=== PATIENT | male | born 1935 | race Caucasian/White ===

== ENCOUNTER 2016-05-29 11:01 | Day surgery (SDC) | payer OTHER ==
[~2016-05-29] VITALS: Ht 165.1 cm; Wt 54.7 kg
[~2016-05-29 11:01] MED LIST: AMLO10 PO; CLOP75 PO; GEMF600T OR; LEVO150T42 PO; METO50TA OR; PANTOPRAZOLE
[2016-05-29] MEDS ORDERED: LACTATED RINGER'S 1000 ML IV PRN (11:45)
[2016-05-29] MEDS ORDERED: POVIDONE IODINE 5% (ANTISEPSIS KIT) 4 APPLICATIONS EACH NARE SCH (11:45)
[2016-05-29] MEDS ORDERED: VANCOMYCIN 1000 MG/NS 250 ML IV SCH ×2 (11:45)
[2016-05-29] MEDS ORDERED: NS 1000 ML IV SCH (11:45)
[2016-05-29] MEDS ORDERED: SODIUM CHLORID 0.9% 500 ML IV PRN (11:45)
[2016-05-29] MEDS ORDERED: ceFAZolin 2 GM PREMIX 50 ML IV SCH (11:45)
[2016-05-29] MEDS ORDERED: INSULIN HUMAN REGULAR 1,000 UNITS/10 ML VIAL SQ PRN (11:45)
[2016-05-29] MEDS ORDERED: CHLORHEXIDINE GLUCONATE 2 % 1 PACK (2 CLOTHS) TOPICAL PRN (11:45)
[2016-05-29] MEDS ORDERED: POVIDONE IODINE 5% (ANTISEPSIS KIT) 4 APPLICATIONS EACH NARE PRN (11:45)
[2016-05-29] MEDS ORDERED: MUPIROCIN 2% OINT 1 APPLIC/GM SYR NASAL SCH (11:45)
[2016-05-29] MEDS ORDERED: METOPROLOL TARTRATE 25 MG TAB PO PRN (11:45)
[2016-05-29] MEDS ORDERED: CHLORHEXIDINE GLUCONATE 2 % 1 PACK (2 CLOTHS) TOPICAL SCH (11:45)
[2016-05-29 11:50] LABS: AUTOMATED NEUTROPHIL # 5.8 TH/MM3 (1.8-7.7); BASOPHIL # 0.1 TH/MM3 (0-0.2); BASOPHIL % 0.5 % (0.0-2.0); EOSINOPHIL # 0.2 TH/MM3 (0-0.4); EOSINOPHIL % 2.5 % (0.0-4.0); HEMATOCRIT 40.1 % (39.0-51.0); LYMPH % 17.9 % (9.0-44.0); LYMPHOCYTE # 1.7 TH/MM3 (1.0-4.8); MEAN CELL VOLUME 86.6 FL (80.0-100.0); MEAN CORPUSCULAR HEMOGLOBIN 28.7 PG (27.0-34.0); MEAN CORPUSCULAR HGB CONC 33.1 % (32.0-36.0); MONO % 19.2 % (0.0-8.0); NEUT % 59.9 % (16.0-70.0); PLATELET COUNT 397 TH/MM3 (150-450); RED BLOOD COUNT 4.63 MIL/MM3 (4.50-5.90); RED CELL DISTRIBUTION WIDTH 15.4 % (11.6-17.2); WHITE BLOOD COUNT 9.7 TH/MM3 (4.0-11.0)
[2016-05-29 11:51] LABS: HEMO FLAGS AUTO DIFF
[2016-05-29 12:03] LABS: APTT (PATIENT) 34.1 SEC (24.3-30.1); INTERNATIONAL NORMALIZED RATIO 1.1 RATIO; PROTHROMBIN TIME - PATIENT 12.3 SEC (9.8-11.6)
[2016-05-29 12:09] VITALS: BP 198/96; PULSE 66; RESP 18; TEMP 98.2; O2SAT 100
[2016-05-29 12:18] LABS: BICARBONATE 22.9 MEQ/L (21.0-32.0); POTASSIUM 4.1 MEQ/L (3.5-5.1)
[2016-05-29] MEDS ORDERED: PANT40TA3 PO (12:18)
[2016-05-29] MEDS ORDERED: LEVO100T5 PO (12:18)
[2016-05-29] MEDS ORDERED: PLAV75TA29 PO (12:18)
[2016-05-29] MEDS ORDERED: GEMF600T PO (12:18)
[2016-05-29] MEDS ORDERED: METO50TA11 PO (12:18)
[2016-05-29] MEDS ORDERED: LISI10TA3 PO (12:18)
[2016-05-29 12:27] LABS: BASOPHILS 2 % (0-2); EOSINOPHILS 3 % (0-4); MYELOCYTES 1 % (0-0); NEUTROPHIL # MANUAL DIFF 5.2 TH/MM3 (1.8-7.7); PLATELET ESTIMATE SMEAR NORMAL (NORMAL); PLATELET MORPHOLOGY NORMAL (NORMAL); POLYS (SEG NEUTROPHILS) 53 % (16-70); SCAN/DIFF FINAL DIFF MANUAL; WBC DIFF SAMPLE 100
[2016-05-29] MEDS ORDERED: LIDOCAINE HCL 2% 50 ML VIAL ONE (13:05)
[2016-05-29] MEDS ORDERED: ACETAMINOPHEN 325 MG TAB PO PRN ×2 (14:15)
[2016-05-29] MEDS ORDERED: LEVA500T PO (14:16)
[2016-05-29] MEDS ORDERED: MIDAZOLAM HCL 2 MG/2 ML VIAL ONE (14:46)
--- NOTE | 2016-05-29 17:23 | EKG ---
Date Performed: 05/29/2016 Time Performed: 12:10:30 PTAGE: 81 years EKG: Demand atrial pacing occasional PVC Left axis deviation Cannot rule out septal infarct - ag e undetermined Nonspecific intraventricular conduction delay Lateral ST/T changes, consider ischemia Abnormal ECG PREVIOUS TRACING : 04/23/2011 10.05 No significant change from previous tracing noted. DOCTOR: Andrea Moore Interpretating Date/Time 05/29/2016 17:21:44
--- NOTE | 2016-05-30 19:16 | MP ---
cc: LAZARA MARTINEZ MD, GLENN H. M.D. DATE OF SURGERY: 05/30/2016. PROCEDURE Pacemaker generator replacement. OPERATIVE NOTE: The patient was brought to the operating suite in a fasting state after having signed informed consent. The left upper chest was prepped and draped as per policy and anesthetized with 1% lidocaine. A transverse incision was made over the preexisting generator and using blunt dissection the generator was freed from the subcutaneous pocket. The atrial and ventricular leads were disconnected and then reconnected to the new generator which is a [employer] Accolade device. The atrial and ventricular lead pacing parameters were found to be excellent. The leads and the generator were placed back into the subcutaneous pocket which was closed using 3-0 Vicryl interrupted stitches in two layers to close the subcutaneous tissue and then 4-0 Monocryl running stitch to close the subcuticular tissue. Overlapping Steri-Strips and a dressing were applied. There were no apparent immediate complications. CONCLUSION: Successful pacemaker generator replacement using a [employer] Accolade pacemaker generator. MD ANGELINE Villatoro/TUAN /2:10 PM /7:13 PM MTDRed
== END 2016-05-29 17:53 | disposition home or self-care (01) ==
LOC: HDOC 11:01 → HDIC 11:02 → HDOC 17:53
PROVIDERS: ATTEND Internal Medicine Cardiovascular Disease
DX: Z45.010 Encounter for checking and testing of cardiac pacemaker pulse generator [battery] (principal); I47.2 Ventricular tachycardia; I10 Essential (primary) hypertension; I25.10 Atherosclerotic heart disease of native coronary artery without angina pectoris; R42 Dizziness and giddiness; Z79.01 Long term (current) use of anticoagulants
CPT/HCPCS: 00400; 33228; 80048; 85007; 85027; 85610; 85730; 93005; C1785; J0690; J2250; J3010; J3370; J7050